=== PATIENT | male | born 1985 | race Caucasian/White ===

== ENCOUNTER 2019-08-26 14:58 | Emergency (ER) | payer OTHER ==
[~2019-08-26] VITALS: Wt 107.0 kg
[~2019-08-26 14:58] MED LIST: BACITUD TOP; CLIN300C10 PO
[2019-08-26] MEDS ORDERED: CHLOROPROCAINE 2% INJ ONE (17:00)
[2019-08-26] MEDS ORDERED: CHLOROPROCAINE 3% (MPF) 20 ML INJ INJ ONE (17:30)
[2019-08-26] MEDS ORDERED: BACITRACIN 0.5%/ZINC 28.35 GM OINT TOP ONE (18:00)
[2019-08-26 18:30] VITALS: BP 138/66; PULSE 70; RESP 18
== END 2019-08-26 18:30 | disposition home or self-care (01) ==
LOC: FTE 14:58
DX: S71.112A Laceration without foreign body, left thigh, initial encounter (principal); W22.8XXA Striking against or struck by other objects, initial encounter; Y92.89 Other specified places as the place of occurrence of the external cause
CPT/HCPCS: 12002; 73550; X5924; X5926; Z7502; Z7610; 73552; J2400